=== PATIENT | male | born 1990 | race Caucasian/White ===

== ENCOUNTER 2017-05-07 12:37 | Emergency (ER) | payer BC ==
[2017-05-07 12:45] VITALS: BP 134/72; PULSE 65; RESP 18; TEMP 97
--- NOTE | 2017-05-07 13:16 | XR ---
EXAMINATION TYPE: XR wrist complete RT DATE OF EXAM: 05/07/2017 CLINICAL HISTORY: Right wrist pain since twisting injury. History of chronic right wrist pain from pr ior injury. TECHNIQUE: Frontal, lateral and oblique images of the right wrist are obtained. COMPARISON: Radiographs of the right finger, first digit dated 01/21/2012. FINDINGS: There is no acute fracture/dislocation evident in the right wrist. The joint spaces in th e right wrist appear within normal limits. The overlying soft tissue appears unremarkable. Solitary circumscribed cystic changes seen of the lunate bone. IMPRESSION: There is no acute fracture or dislocation in the right wrist.
--- NOTE | 2017-05-07 13:20 | ED ---
Upper Extremity HPI - General Chief Complaint: Extremity Injury, Upper Stated Complaint: Wrist Pain Time Seen by Provider: 05/07/17 12:48 Source: patient, RN notes reviewed, old records reviewed Mode of arrival: ambulatory - History of Present Illness Initial Comments: 26-year-old male presents to the emergency Department chief complaint of right wrist pain. Patient reports it is more painful and he is unable to flex or extend his wrist for the past. He has a history of injuries where he strained his wrist approximately a year so ago. He reports that he works as for is always using his hands. He states that last week he was trying to catch something falling off of the roof and strained his wrist again. He states he woke up with very limited range of motion today. Patient denies any peripheral paresthesias or swelling of the hand and wrist. Denies any deformity. He reports that he is predominantly left handed but does use his right hand ambiodextrously. Handedness: ambidextrous - Related Data Home Medications Medication Instructions Recorded Confirmed Multivitamin [Men's Multi-Vitamin] 1 tab PO DAILY 05/14/16 05/07/17 Turmeric Root Extract [Turmeric] 500 mg PO DAILY 05/07/17 05/07/17 Previous Rx's Medication Instructions Recorded Ibuprofen [Motrin] 800 mg PO TID #30 tab 05/07/17 traMADol HCl [Ultram] 50 mg PO Q6H PRN #10 tab 05/07/17 Allergies Allergy/AdvReac Type Severity Reaction Status Date / Time amoxicillin Allergy Unknown Verified 05/07/17 13:03 Childhood Penicillins Allergy Unknown Verified 05/07/17 13:03 Childhood Review of Systems ROS Statement: Those systems with pertinent positive or pertinent negative responses have been documented in the HPI. ROS Other: All systems not noted in ROS Statement are negative. Past Medical History Past Medical History: No Reported History History of Any Multi-Drug Resistant Organisms: None Reported Past Surgical History: No Surgical Hx Reported Past Psychological History: No Psychological Hx Reported Smoking Status: Never smoker Past Alcohol Use History: Rare Past Drug Use History: Marijuana General Exam - General Exam Comments Initial Comments: 26-year-old male. No acute distress. General appearance: alert, in no apparent distress Head exam: Present: atraumatic, normocephalic, normal inspection Eye exam: Present: normal appearance, PERRL, EOMI. Absent: scleral icterus, conjunctival injection, periorbital swelling ENT exam: Present: normal exam, mucous membranes moist Neck exam: Present: normal inspection. Absent: tenderness, meningismus, lymphadenopathy Respiratory exam: Present: normal lung sounds bilaterally. Absent: respiratory distress, wheezes, rales, rhonchi, stridor Cardiovascular Exam: Present: regular rate, normal rhythm, normal heart sounds. Absent: systolic murmur, diastolic murmur, rubs, gallop, clicks GI/Abdominal exam: Present: soft, normal bowel sounds. Absent: distended, tenderness, guarding, rebound, rigid Extremities exam: Present: normal inspection, full ROM, normal capillary refill. Absent: tenderness, pedal edema, joint swelling, calf tenderness Right Elbow exam: Present: normal inspection, full ROM Forearm Wrist exam: Present: normal inspection. Absent: full ROM (Patient reports limited range of motion due to pain. ) Hand Wrist exam: Present: normal inspection, full ROM Neuro motor exam: Present: wrist extension intact, thumb opposition intact, thumb IP flexion intact, thumb adduction intact, fingers 2-5 abduction intact Neurosensory exam: Present: 2-point discrimination Vascular: Present: normal capillary refill Back exam: Present: normal inspection Neurological exam: Present: alert, oriented X3, CN II-XII intact Psychiatric exam: Present: normal affect Skin exam: Present: warm, dry, intact, normal color. Absent: rash Course Vital Signs 05/07/17 12:43 Temperature 97 F L Pulse Rate 65 Respiratory 18 Rate Blood Pressure 134/72 O2 Sat by Pulse 100 Oximetry Medical Decision Making - Medical Decision Making 26-year-old male presents to the emergency Department chief complaint of right wrist pain. Patient reports it is more painful and he is unable to flex or extend his wrist for the past. He has a history of injuries where he strained his wrist approximately a year so ago. He reports that he works as for is always using his hands. He states that last week he was trying to catch something falling off of the roof and strained his wrist again. He states he woke up with very limited range of motion today. Patient denies any peripheral paresthesias or swelling of the hand and wrist. Denies any deformity. He reports that he is predominantly left handed but does use his right hand ambiodextrously. Patient does have limited range of motion due to pain and will not flex or extend his wrist. He has normal sensation distally. Less than 2 second capillary refill. Full range of motion and fingers. No pain in the elbow. Patient reports that he does have a splint that he has been using. He states that he hasn't seen orthopedics for this. Patient begin anti-inflammatory medication instructed to follow-up with orthopedic physician. Patient received treatment plan will comply. Return parameters were discussed. - Radiology Data Radiology results: report reviewed No acute fracture-dislocation of the right wrist. Disposition Clinical Impression: Strain of right wrist Disposition: HOME SELF-CARE Condition: Good Instructions: Wrist Injury (ED) Additional Instructions: Patient advised to take medications as prescribed. Follow-up with orthopedic physician. Patient can wear splint. Return to emergency department if any alarming signs or symptoms occur. Prescriptions: Ibuprofen [Motrin] 800 mg PO TID #30 tab traMADol HCl [Ultram] 50 mg PO Q6H PRN #10 tab PRN Reason: Pain Referrals: None,Stated [Primary Care Provider] - 1-2 days Jr Kraft MD [Medical Doctor] - 1-2 days Time of Disposition: 13:18
== END 2017-05-07 13:33 | disposition home or self-care (01) ==
LOC: EC 12:37
DX: S66.911A Strain of unspecified muscle, fascia and tendon at wrist and hand level, right hand, initial encounter (principal); Z88.0 Allergy status to penicillin; Z79.899 Other long term (current) drug therapy; X50.9XXA Other and unspecified overexertion or strenuous movements or postures, initial encounter
CPT/HCPCS: 99283

== ENCOUNTER → 2017-05-18 | Outpatient (CLI) | payer BC ==
--- NOTE | 2017-05-18 21:51 | MR ---
EXAMINATION TYPE: MR lumbar spine wo con DATE OF EXAM: 05/18/2017 8:51 PM COMPARISON: NONE HISTORY: Pain Multiplanar, MultiSpin echo imaging of the lumbar spine was performed. L1-L2: Normal disc appearance without desiccation. No herniation, protrusion or disc bulging. No ca nal stenosis is present. Foramina are patent bilaterally. L2-L3: Normal disc appearance without desiccation. No herniation, protrusion or disc bulging. No ca nal stenosis is present. Foramina are patent bilaterally. L3-L4: Normal disc appearance without desiccation. No herniation, protrusion or disc bulging. No ca nal stenosis is present. Foramina are patent bilaterally. L4-L5: Normal disc appearance without desiccation. No herniation, protrusion or disc bulging. No ca nal stenosis is present. Foramina are patent bilaterally. L5-S1: Severe disc desiccation noted. Posterocentral subligamentous disc herniation mildly effaces th e ventral thecal sac. No evidence for disc extrusion. No central stenosis identified. Foramina are pa tent bilaterally. Lumbar segments are intact. No paraspinal masses are identified. Conus medullaris has a normal appe arance. IMPRESSION: 1. Mild Posterocentral disc herniation at L5-S1 with a superimposed disc desiccation.
--- NOTE | 2017-05-18 23:31 | MR ---
EXAMINATION TYPE: MR wrist RT wo con DATE OF EXAM: 05/18/2017 COMPARISON: NONE HISTORY: Wrist Pain, with locking and Limited ROM x2 years Standard multiplanar, multisequence MRI departmental protocol Multiplanar, multisequence images of the right wrist were acquired. FINDINGS: Intercarpal joint spaces are fairly normal. I see no focal bone destruction. There is no ev idence of a fracture. There is no sign of bone edema. The flexor and extensor tendons of the wrist ap pear intact. There is a 9 x 4 mm cystic fluid collection between the triquetrum and hamate consistent with a small joint effusion or synovial cyst. Triangular cartilage appears intact.. IMPRESSION: Small synovial cyst or joint effusion on the medial aspect of the carpus. No fracture. No evidence of ligament or tendon tear. Normal joint spaces.
== END | disposition home or self-care (01) ==
LOC: RADMRIMAIN 20:04
PROVIDERS: ATTEND Internal Medicine
DX: M51.27 Other intervertebral disc displacement, lumbosacral region (principal); M25.531 Pain in right wrist
CPT/HCPCS: 72148

== ENCOUNTER 2017-11-30 18:20 | Emergency (ER) | payer BC, OTHER ==
[2017-11-30 19:11] VITALS: RESP 18
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
--- NOTE | 2017-11-30 19:44 | XR ---
EXAMINATION TYPE: XR foot complete RT DATE OF EXAM: 11/30/2017 COMPARISON: NONE HISTORY: Pain TECHNIQUE: 3 views FINDINGS: I see no fracture nor dislocation. Metatarsals are intact. Joint spaces are normal. There a re no pathologic calcifications. IMPRESSION: Negative right foot exam
--- NOTE | 2017-11-30 19:47 | XR ---
EXAMINATION TYPE: XR ankle complete RT DATE OF EXAM: 11/30/2017 COMPARISON: NONE HISTORY: Pain TECHNIQUE: 3 views FINDINGS: I see no fracture nor dislocation. Ankle mortise is anatomic. Joint spaces are normal. IMPRESSION: Negative right ankle exam. There is noted accessory ossicle adjacent to the cuboidal bone .
[2017-11-30 20:13] VITALS: BP 138/72; PULSE 68; TEMP 98.1
== END 2017-11-30 20:12 | disposition home or self-care (01) ==
LOC: EC 18:20
DX: S93.401A Sprain of unspecified ligament of right ankle, initial encounter (principal); Z88.0 Allergy status to penicillin; W51.XXXA Accidental striking against or bumped into by another person, initial encounter; Y93.67 Activity, basketball
CPT/HCPCS: 99283

== ENCOUNTER 2019-02-13 14:38 | Emergency (ER) | payer OTHER ==
[2019-02-13 14:43] VITALS: BP 128/74; PULSE 88; RESP 18; TEMP 98.1
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
== END 2019-02-13 15:43 | disposition home or self-care (01) ==
LOC: EC 14:38
DX: S20.211A Contusion of right front wall of thorax, initial encounter (principal); Z88.0 Allergy status to penicillin; V00.328A Other snow-ski accident, initial encounter; Y93.23 Activity, snow (alpine) (downhill) skiing, snowboarding, sledding, tobogganing and snow tubing; Y92.89 Other specified places as the place of occurrence of the external cause
CPT/HCPCS: 99284

== ENCOUNTER 2019-06-08 18:07 | Emergency (ER) | payer OTHER ==
[2019-06-08 18:12] VITALS: BP 134/85; PULSE 100; RESP 18; TEMP 98
[2019-06-08] MEDS ORDERED: KETOROLAC 60 MG/2 ML VIAL IM STA (18:25)
--- NOTE | 2019-06-08 18:31 | ED ---
General Adult HPI - General Chief complaint: Fall Stated complaint: Rib injury Time Seen by Provider: 06/08/19 18:22 Source: patient, RN notes reviewed, old records reviewed Mode of arrival: ambulatory Limitations: no limitations - History of Present Illness Initial comments: 28-year-old male patient presents ED chief complaint of left rib pain. Patient was that he was working, his kneepad slipped and he stumbled, hitting his left ribs on metal rafters. Patient now has pain in his left lateral rib region. Patient denies any other trauma, denies any other complaints at this time. Systemic: Pt denies fatigue, fever/chills, rash. Pt denies weakness, night sweats, weight loss. Neuro: Pt denies headache, visual disturbances, syncope or pre-syncope. HEENT: Pt denies ocular discharge or irritation, otalgia, rhinorrhea, pharyngitis or notable lymphadenopathy. Cardiopulmonary: Pt denies chest pain, SOB, heart palpitations, dyspnea on exertion. Abdominal/GI: Pt denies abdominal pain, n/v/d. : Pt denies dysuria, burning w/ urination, frequency/urgency. Denies new onset urinary or bowel incontinence. MSK: Pt denies loss of strength or function in extremities. Neuro: Pt denies new onset weakness, paresthesias. - Related Data Previous Rx's Medication Instructions Recorded Ibuprofen [Motrin] 600 mg PO Q8HR PRN #30 tab 02/13/19 Ibuprofen [Motrin] 600 mg PO Q8HR PRN #40 day 06/08/19 Allergies Allergy/AdvReac Type Severity Reaction Status Date / Time amoxicillin Allergy Unknown Verified 06/08/19 18:09 Childhood Penicillins Allergy Unknown Verified 06/08/19 18:09 Childhood Review of Systems ROS Statement: Those systems with pertinent positive or pertinent negative responses have been documented in the HPI. ROS Other: All systems not noted in ROS Statement are negative. Past Medical History Past Medical History: No Reported History History of Any Multi-Drug Resistant Organisms: None Reported Past Surgical History: No Surgical Hx Reported Past Psychological History: No Psychological Hx Reported Smoking Status: Never smoker Past Alcohol Use History: Rare Past Drug Use History: Marijuana General Exam - General Exam Comments Initial Comments: Constitutional: NAD, AOX3, Pt has pleasant affect. HEENT: NC/AT, trachea midline, neck supple, no lymphadenopathy. Posterior pharynx non erythematous, without exudates. External ears appear normal, without discharge. Mucous membranes moist. Eyes PERRLA, EOM intact. There is no scleral icterus. No pallor noted. Cardiopulmonary: RRR, no murmurs, rubs or gallops, no JVD noted. Lungs CTAB in anterior and posterior jaffe. No peripheral edema. Abdominal exam: Abdomen soft and non-distended. Abdomen non-tender to palpation in all 4 quadrants. Bowel sounds active in LLQ. No hepatosplenomegaly. No ecchymosis Neuro: CN II-XII grossly intact. No nuchal rigidity. No raccon eyes, no carlisle sign, no hemotympanum. No cervical spinal tenderness. MSK: Left lateral rib region mildly tender to palpation, no ecchymoses, no crepitus, no deformity. No posterior calf tenderness bilaterally, homans sign negative bilaterally. Posterior tibialis and radial pulse +2 bilaterally. Sensation intact in upper and lower extremities. Full active ROM in upper and lower extremities, 5/5 stregnth. Limitations: no limitations Course Vital Signs 06/08/19 18:10 Temperature 98 F Pulse Rate 100 Respiratory 18 Rate Blood Pressure 134/85 O2 Sat by Pulse 99 Oximetry Medical Decision Making - Medical Decision Making 28-year-old male patient presents ED chief complaint of left rib pain. Patient was that he was working, his kneepad slipped and he stumbled, hitting his left ribs on metal rafters. Patient now has pain in his left lateral rib region. Patient denies any other trauma, denies any other complaints at this time. Patient vital signs stable, afebrile. Physical exam displayed left lateral ribs mildly tender to palpation. Chest x-ray and plain film of ribs does not display any rib fractures or pathology. Patient diagnosed rib contusion. Patient discharged with ibuprofen. Patient educated on the importance of inspiratory and expiratory effort. Will follow up with primary care provider. Return precautions discussed. Case discussed with Dr. Sharma. Disposition Clinical Impression: Fall, Rib contusion Disposition: HOME SELF-CARE Condition: Stable Instructions (If sedation given, give patient instructions): Rib Contusion (ED) Additional Instructions: Patient to adhere to previously discussed treatment plan and will take medication(s) as directed. Patient to follow up with PCP in 1-2 days. Patient to return to ED if symptoms do not improve. Take ibuprofen as needed for pain. Follow up with primary care provider tomorrow. Prescriptions: Ibuprofen [Motrin] 600 mg PO Q8HR PRN #40 day PRN Reason: Pain Is patient prescribed a controlled substance at d/c from ED?: No Referrals: None,Stated [Primary Care Provider] - 1-2 days
[2019-06-08] MEDS ORDERED: IBUPROFEN 600 MG STARTER PACK 4 TAB BTL PO STA (19:27)
[2019-06-08] MEDS ORDERED: IBUPROFEN 600 MG TAB PO STA (19:27)
--- NOTE | 2019-06-08 19:45 | XR ---
EXAMINATION TYPE: XR chest 2V DATE OF EXAM: 06/08/2019 COMPARISON: 02/13/2019 HISTORY: Left-sided rib pain TECHNIQUE: Frontal and lateral views of the chest are obtained. FINDINGS: Heart and mediastinum appear normal. Lungs are clear. Diaphragm is normal. The bony thorax appears intact. Pulmonary vascularity is normal. IMPRESSION: Normal chest. No change.
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
== END 2019-06-08 20:13 | disposition home or self-care (01) ==
LOC: EC 18:07
DX: S20.212A Contusion of left front wall of thorax, initial encounter (principal); Z88.0 Allergy status to penicillin; Z53.20 Procedure and treatment not carried out because of patient's decision for unspecified reasons; W01.198A Fall on same level from slipping, tripping and stumbling with subsequent striking against other object, initial encounter; Y93.89 Activity, other specified; Y92.009 Unspecified place in unspecified non-institutional (private) residence as the place of occurrence of the external cause
CPT/HCPCS: 71046; 99284

== ENCOUNTER 2024-10-05 17:45 | Emergency (ER) | payer OTHER ==
--- NOTE | 2024-10-05 18:35 | ED ---
Eye Problem HPI - General Source: patient, RN notes reviewed Mode of arrival: ambulatory Limitations: no limitations <Suzan Paniagua - Last Filed: 10/05/24 18:34> <Ran Tobar - Last Filed: 10/06/24 22:35> - General Chief complaint: Eye Problems Stated complaint: obj in rt eye Time Seen by Provider: 10/05/24 18:25 - History of Present Illness Initial comments: Quick Note: This is a 34-year-old male who presents to the emergency department for sawdust in his right eye. States this happened at work shortly before arrival. He got some in the left eye as well, but was able to get it out. He was unable to get it out of the right eye. (Suzan Paniagua) 34-year-old male presenting with chief complaint of sawdust in his right eye. Patient was at work when the wind blew sawdust under his safety glasses. He was flushing his eyes out. He was able to get this on the side of his left eye but still feels like there are some left in his right eye. He admits to watering and irritation. Admits to foreign body sensation. Admits to some mildly blurred vision. He is not a contact lens wearer. (Ran Tobar) - Related Data Previous Rx's Medication Instructions Recorded Ibuprofen [Motrin] 600 mg PO Q8HR PRN #30 tab 02/13/19 Ibuprofen [Motrin] 600 mg PO Q8HR PRN #40 day 06/08/19 Allergies Allergy/AdvReac Type Severity Reaction Status Date / Time amoxicillin Allergy Unknown Verified 06/08/19 18:09 Childhood clavulanic acid Allergy Rash/Hives Verified 10/05/24 18:44 [From Augmentin] Penicillins Allergy Unknown Verified 06/08/19 18:09 Childhood Review of Systems ROS Other: All systems not noted in ROS Statement are negative. <Suzan Paniagua - Last Filed: 10/05/24 18:34> ROS Other: All systems not noted in ROS Statement are negative. <Ran Tobar - Last Filed: 10/06/24 22:35> ROS Statement: Those systems with pertinent positive or pertinent negative responses have been documented in the HPI. Past Medical History Past Medical History: No Reported History History of Any Multi-Drug Resistant Organisms: None Reported Past Surgical History: No Surgical Hx Reported Past Psychological History: No Psychological Hx Reported Past Alcohol Use History: Rare Past Drug Use History: Marijuana <Suzan Paniagua - Last Filed: 10/05/24 18:34> General Exam <Suzan Paniagua - Last Filed: 10/05/24 18:34> Limitations: no limitations General appearance: alert, in no apparent distress Head exam: Present: atraumatic, normocephalic, normal inspection Eye exam: Present: PERRL, EOMI, conjunctival injection. Absent: periorbital swelling Neck exam: Present: normal inspection. Absent: meningismus Respiratory exam: Absent: respiratory distress Cardiovascular Exam: Present: regular rate Neurological exam: Present: alert, oriented X3 Psychiatric exam: Present: normal affect, normal mood Skin exam: Present: warm, dry <Ran Tobar - Last Filed: 10/06/24 22:35> - General Exam Comments Initial Comments: Visual Physical Exam Vital signs reviewed General: Well-appearing, nontoxic, no acute distress. Head: Normocephalic, atraumatic Eyes: PERRLA, EOMI ENT: Airway patent Chest: Nonlabored breathing Skin: No visual rash, normal skin tone Neuro: Alert and oriented 3 Musculoskeletal: No gross abnormalities (Suzan Paniagua) Course Vital Signs 10/05/24 10/05/24 18:40 20:47 Temperature 98.1 F 98.1 F Pulse Rate 74 70 Respiratory 18 18 Rate Blood Pressure 156/75 130/77 O2 Sat by Pulse 98 99 Oximetry Medical Decision Making <Suzan Paniagua - Last Filed: 10/05/24 18:34> <Ran Tobar - Last Filed: 10/06/24 22:35> - Medical Decision Making I performed the QuickNote portion of this chart. Signed Suzan Paniagua PA-C. (Suzan Paniagua) Was pt. sent in by a medical professional or institution ([facility], [facility], urgent care, hospital, or prison...) When possible be specific @ -No Did you speak to anyone other than the patient for history (EMS, parent, family, police, friend...)? What history was obtained from this source @ -No Did you review nursing and triage notes (agree or disagree)? Why? @ -I reviewed and agree with nursing and triage notes Were old charts reviewed (outside hosp., previous admission, EMS record, old EKG, old radiological studies, urgent care reports/EKG's, prison records)? Report findings @ -No old charts were reviewed Differential Diagnosis (chest pain, altered mental status, abdominal pain women, abdominal pain men, vaginal bleeding, weakness, fever, dyspnea, syncope, headache, dizziness, GI bleed, back pain, seizure, CVA, palpatations, mental he alth, musculoskeletal)? @ -Differential includes foreign body, corneal abrasion, corneal ulcer, this is not an all-inclusive list EKG interpreted by me (3pts min.). @ -As above X-rays interpreted by me (1pt min.). @ -None done CT interpreted by me (1pt min.). @ -None done U/S interpreted by me (1pt. min.). @ -None done What testing was considered but not performed or refused? (CT, X-rays, U/S, labs)? Why? @ -None What meds were considered but not given or refused? Why? @ -None Did you discuss the management of the patient with other professionals (professionals i.e. , PA, PIPE JEEPER, lab, RT, psych nurse, public health social worker, a&p technician, teacher, armored vehicle officer, director of casework services)? Give summary @ -No Was smoking cessation discussed for >3mins.? @ -No Was critical care preformed (if so, how long)? @ -No Were there social determinants of health that impacted care today? How? (Homelessness, low income, unemployed, alcoholism, drug addiction, transportation, low edu. Level, literacy, decrease access to med. care, residential, rehab)? @ -No Was there de-escalation of care discussed even if they declined (Discuss DNR or withdrawal of care, Hospice)? DNR status @ -No What co-morbidities impacted this encounter? (DM, HTN, Smoking, COPD, CAD, Cancer, CVA, ARF, Chemo, Hep., AIDS, mental health diagnosis, sleep apnea, morbid obesity)? @ -None Was patient admitted / discharged? Hospital course, mention meds given and route, prescriptions, significant lab abnormalities, going to OR and other pertinent info. @ -34-year-old male presenting with chief complaint of sawdust in his right eye. Patient is having scleral injection and watering. Difficulty opening his eye due to sensitivity. Suleman lens is used and the eye is irrigated with a liter of normal saline. Proparacaine drops were then used and fluorescein staining is done which shows a centralize corneal abrasion. Patient is provided with Cipro eyedrops to use bilaterally, he reports that he also had some sawdust in his left eye but has no remaining foreign body sensation so we will use out of caution. I do not see any obvious uptake around the left eye during fluorescein staining. Provided with ketorolac eyedrops for pain. Fol low-up with PCP. Report back to ER with any new or worsening symptoms. Discussed return parameters and answered all questions. Patient conveyed verbal understanding and agreed to the plan. I discussed this case in detail with my attending Dr. Sharma Undiagnosed new problem with uncertain prognosis? @ -No Drug Therapy requiring intensive monitoring for toxicity (Heparin, Nitro, Insulin, Cardizem)? @ -No Were any procedures done? @ -No Diagnosis/symptom? @ -Corneal abrasion, foreign body Acute, or Chronic, or Acute on Chronic? @ -Acute Uncomplicated (without systemic symptoms) or Complicated (systemic symptoms)? @ -Uncomplicated Side effects of treatment? @ -No Exacerbation, Progression, or Severe Exacerbation? @ -No Poses a threat to life or bodily function? How? (Chest pain, USA, MS, pneumonia, PE, COPD, DKA, ARF, appy, cholecystitis, CVA, Diverticulitis, Homicidal, Suicidal, threat to staff... and all critical care pts) @ -Unlikely (Ran Tobar) Disposition <Suzan Paniagua - Last Filed: 10/05/24 18:34> Is patient prescribed a controlled substance at d/c from ED?: No Time of Disposition: 20:03 <Ran Tobar - Last Filed: 10/06/24 22:35> Clinical Impression: Corneal abrasion Disposition: HOME SELF-CARE Condition: Good Instructions (If sedation given, give patient instructions): Corneal Abrasion (ED) Additional Instructions: Apply to ciprofloxacin eyedrops 4 times daily for 5 days to prevent infection. You may apply 1 ketorolac eyedrop up to 3 times a day as needed for pain. Follow-up with your PCP. Report back to ER with any new or worsening symptoms. Referrals: Umer Tejeda MD [Primary Care Provider] - 1-2 days
[2024-10-05 18:43] VITALS: RESP 18; TEMP 98.1
[2024-10-05] MEDS: FLUORESCEIN STRIPS 1 MG STRIP RIGHT EYE ONE (19:04)
[2024-10-05] MEDS: PROPARACAINE 0.5% OPHTH DROPS 15 ML BTL RIGHT EYE STA (19:05)
[2024-10-05] MEDS: CIPROFLOXACIN 0.3% OPHTH SOLN 5 ML BTL BOTH EYES STA (20:44)
[2024-10-05] MEDS: KETOROLAC 0.5% OPHTH DROPS 5 ML BTL BOTH EYES STA (20:45)
[2024-10-05 20:49] VITALS: BP 130/77; PULSE 70
== END 2024-10-05 20:53 | disposition home or self-care (01) ==
LOC: EC 17:45
DX: H57.8A3 Foreign body sensation, bilateral eyes (principal); Z88.0 Allergy status to penicillin; Z88.1 Allergy status to other antibiotic agents
CPT/HCPCS: 99283